=== PATIENT | male | born 1950 | race Caucasian/White ===

== ENCOUNTER 2016-10-22 23:34 | Emergency (ER) | payer BC ==
[2016-10-22 20:56] LABS: WBC (NOT ORDERED) (RFLEX) 0 (0-5)
[2016-10-22 21:00] LABS: BASOPHILS 0.5 %; BASOPHILS ABSOLUTE 0.03 10/3/uL (0.0-0.16); EOSINOPHILS ABSOLUTE 0.25 10/3/uL (0.0-0.53); ER CBC TAT 0 Hrs 00 Mins; HEMATOCRIT 45.7 % (40.0-51.0); HEMOGLOBIN 16.1 g/dL (13.6-17.8); LYMPHOCYTES 27.4 %; LYMPHOCYTES ABSOLUTE 1.72 10/3/uL (0.67-4.30); MANUAL DIFF NO %; MEAN CORPUS HGB CONC 35.2 g/dL (32.0-36.0); MEAN CORPUSCULAR HEMOGLOB 30.9 pg (26.0-34.0); MEAN CORPUSCULAR VOLUME 87.7 fL (80-100); MEAN PLATELET VOLUME 9.6 fL (9.2-13.0); MONOCYTES 8.8 %; MONOCYTES ABSOLUTE 0.55 10/3/uL (0.21-1.20); NEUTROPHILS 59.3 %; NEUTROPHILS ABSOLUTE 3.72 10/3/uL (2.02-8.40); PLATELET COUNT 256 10/3/uL (150-400); RBC DISTRIBUTION WIDTH 13.5 % (12.0-16.0); RED CELL COUNT 5.21 10/6/uL (4.7-6.1); WHITE BLOOD CELLS 6.3 10/3/uL (4.5-10.5)
[2016-10-22 21:07] LABS: ASCORBIC ACID (UR NOT ORDER) NEG (NEG); BILIRUBIN, URINE NEGATIVE (NEG); ER URINALYSIS TAT 0 Hrs 14 Mins; KETONE, URINE TRACE MG/DL (NEG); LEUKOCYTE ESTERASE(NOT OR NEG (NEG); NITRITE (URINE) NEG (NEG)
[2016-10-22 21:20] LABS: A/G RATIO 1.2 (0.7-1.9); ALBUMIN 4.3 G/DL (3.5-5.0); BUN (BLOOD UREA NITROGEN) 11 MG/DL (6-23); CALCIUM, SERUM 9.8 MG/DL (8.5-10.4); CHLORIDE, SERUM 106 MMOL/L (96-112); CREATININE 0.92 MG/DL (0.70-1.30); GFR AFRICAN AMERICAN 99 ML/MIN (>=60); GFR NON AFRICAN AMERICAN 86 ML/MIN (>=60); GLOBULIN 3.5 G/DL (2.5-4.1); GLUCOSE, SERUM 87 MG/DL (60-99); POTASSIUM, SERUM 3.6 MMOL/L (3.5-5.3); SGOT(AST) 24 U/L (5-40); SGPT(ALT) 39 U/L (5-65); SODIUM, SERUM 140 MMOL/L (135-148); TOTAL PROTEIN 7.8 G/DL (6.0-8.5)
[2016-10-22 21:22] LABS: ALKALINE PHOSPHATASE 64 U/L (45-117); CO2 (CARBON DIOXIDE) 28 MMOL/L (24-34); TOTAL BILIRUBIN 2.5 MG/DL (0-1.2)
[~2016-10-22 23:34] MED LIST: AMINO ACIDS PO
[2017-03-12] MEDS ORDERED: *DENIES (13:21)
== END 2016-10-22 23:59 | disposition home or self-care (01) ==
LOC: ER 23:34
PROVIDERS: Emergency Medicine
PROC: 0T9B70Z Drainage of Bladder with Drainage Device, Via Natural or Artificial Opening (ICD-10-PCS; principal; 2016-10-22)
DX: R10.9 Unspecified abdominal pain (principal); F03.90 Unspecified dementia, unspecified severity, without behavioral disturbance, psychotic disturbance, mood disturbance, and anxiety; Z86.718 Personal history of other venous thrombosis and embolism; Z85.828 Personal history of other malignant neoplasm of skin; Z88.0 Allergy status to penicillin; Z88.2 Allergy status to sulfonamides; Z88.8 Allergy status to other drugs, medicaments and biological substances
CPT/HCPCS: 80053; 81001; 85025; 96374; 99284; J2405

== ENCOUNTER 2016-11-03 13:11 | Emergency (ER) | payer BC ==
[2016-11-03 12:26] LABS: ASCORBIC ACID (UR NOT ORDER) NEG (NEG); BILIRUBIN, URINE NEGATIVE (NEG); ER URINALYSIS TAT 0 Hrs 18 Mins; KETONE, URINE NEGATIVE (NEG); LEUKOCYTE ESTERASE(NOT OR MOD (NEG); NITRITE (URINE) NEG (NEG); WBC (NOT ORDERED) (RFLEX) 35 (0-5)
[2017-03-12] MEDS ORDERED: *DENIES (13:21)
== END 2016-11-03 13:35 | disposition home or self-care (01) ==
LOC: ER 13:11
PROVIDERS: Emergency Medicine
DX: N39.0 Urinary tract infection, site not specified (principal); R33.9 Retention of urine, unspecified; N48.89 Other specified disorders of penis; Z88.0 Allergy status to penicillin; Z88.2 Allergy status to sulfonamides; Z88.8 Allergy status to other drugs, medicaments and biological substances; Z79.899 Other long term (current) drug therapy
CPT/HCPCS: 81001; 87077; 87086; 87186; 99283

== ENCOUNTER 2016-11-09 01:26 | Inpatient (IN) | payer BC ==
--- NOTE | ~2016-11-09 | IDS ---
Interim Discharge Summary [facility] [address] [place]. [address] NAME: JAMIA TRACY : 48 STATUS : ADM IN [facility]#: [id number] AGE: 66 ADM/REG DATE : 11/09/16 MR#: [id number] REPORT SERV DATE: 11/12/16 DICTATED BY: EROS CLARK DATE: 11/12/16 REPORT STATUS : Draft TRANSCRIBED BY: MODL DATE: 11/12/16 ADMISSION DATE: 11/09/2016 DISCHARGE DATE: WORKING DIAGNOSES: 1. Garcia catheter associated pseudomonal and Klebsiella urinary tract infection. 2. Urinary tract infection above is complicated by epididymitis and possible orchitis with formation of complex hydrocele. Improving with IV aztreonam. 3. Urinary retention with benign prostatic hyperplasia, with plans for surgery in the near future. 4. Multiple drug allergies. 5. Chronic headaches. 6. Elevated liver enzymes, mild with no significant imaging evaluations. CONSULTANTS: 1. Dr. Angel of Infectious Disease. 2. Dr. Mccracken of Urology. PROCEDURES: None. HOSPITAL COURSE: This is a 66-year-old gentleman who was admitted to the hospital with a Garcia catheter associated urinary tract infection. For details, please refer to the excellent H and P by Dr. Drew Montgomery. In summary, the patient was admitted and was started aztreonam as the patient has multiple drug allergies. The patient was seen by Infectious Disease as well as Urology and currently the plan is for the patient to continue IV aztreonam as prior to getting a re-evaluation for prostatic surgery. Of note, the patient's repeat urine cultures have been negative and tentatively the plan is to continue IV aztreonam to complete a two-week course. The aztreonam was chosen as the patient has multiple drug allergies and intolerance to many antibiotics. Case Management is to set up outpatient antibiotic therapy, and hopefully, the patient will be able to be discharged to home soon. MIRNA/ANDRIY Eros Clark MD / [id number] CC: MD Nura Smith M.D.
--- NOTE | ~2016-11-09 | CN ---
Consultation Report [facility] [address] [place]. [address] NAME: JAMIA TRACY : 48 STATUS : ADM Damian PAT#: [id number] AGE: 66 ADM/REG DATE : 11/09/16 MR#: [id number] REPORT SERV DATE: 11/10/16 DICTATED BY: RABIA ANGEL DATE: 11/09/16 REPORT STATUS : Draft TRANSCRIBED BY: MODL DATE: 11/09/16 INFECTIOUS DISEASE CONSULTATION DATE OF CONSULTATION: 11/09/2016 REASON FOR CONSULTATION: UTI and epididymitis. HISTORY OF PRESENT ILLNESS: This is a 66-year-old man with a past medical history notable for BPH with urinary retention. This problem really started in early October when he had eye surgery and developed postoperative ileus and urinary retention and had to have a Garcia catheter placed. He has been followed by Dr. Chau and has continued to fail voiding trials, requiring replacement of Garcia catheters. This is outlined in more detail on Dr. Montgomery's history and physical with regard to his postvoid residuals, etc. Decision was made to pursue a TURP. A urine culture though was obtained in the emergency room on 11/03 and grew greater than 100,000 colonies of Klebsiella and Pseudomonas, both of which were sensitive to Cipro. His urinalysis associated with that did show moderate leukocyte esterase and 35 white blood cells. The patient was started on Cipro by Dr. Chau and took his first dose on the evening of 11/06. Prior to this, he relates fevers and chills for about a week and a half. After starting the Cipro, the patient fairly quickly developed a bad headache, "cranial pressure," and then he developed symptoms of "tightness in all my tendons," including in his Achilles tendon. He also complains of low back pain. Because of these symptoms and his previous history of antibiotic intolerances and allergies, he stopped the Cipro after the second dose on 11/07. He presented to the emergency department at [facility] around midnight last night complaining of this cranial pressure, fevers, and low back pain. He also had developed this week some increasing pain, swelling, and redness of his left scrotum with lesser symptoms on the right. On admission, he was found to have changes consistent with epididymitis on physical exam along with a white blood cell count of 13,100. He was admitted, and a repeat urine culture from his Garcia catheter was obtained along with urinalysis and blood cultures. The patient was ordered aztreonam, but refused to take it until I talked to him. He did undergo ultrasound of his testicles today, which was interpreted as showing findings most suggestive of left-sided epididymo-orchitis along with an associated complex hydrocele/pyocele measuring at least 3.5 x 1.5 cm along with a small right simple hydrocele. The patient states he has had a number of allergies and intolerances to antibiotics through the years. However, he tells me that he has a poor memory recalling many of the specifics about these reactions. He does think that years ago following Mohs surgery, he developed a staph infection and had a reaction to some sort of penicillin that included a rash. He has not had anaphylaxis. He has also had problems with the sulfa and then the recent problems with the Cipro. He has become very reluctant to take any antibiotics. PAST MEDICAL HISTORY: In addition to the above is notable for right inguinal hernia repair, appendectomy, retinal detachment surgery, and some trauma requiring multiple surgeries. I did not have time to discuss his GI history with him with regard to his elevated liver Consultation Report [address] [place]. [address] NAME: JAMIA TRACY : 48 STATUS : ADM Damian PAT#: [id number] AGE: 66 ADM/REG DATE : 11/09/16 MR#: [id number] REPORT SERV DATE: 11/10/16 DICTATED BY: RABIA ANGEL DATE: 11/09/16 REPORT STATUS : Draft TRANSCRIBED BY: MODRoger DATE: 11/09/16 function tests, but he has been followed by Dr. Gregory (the patient focuses poorly on the questions that I ask him and we spent a very long period of time talking about the antibiotic allergy history issue). The patient also has a history of eczema and I think possibly seborrhea of the face and cervical spine disease. ALLERGIES: MENTIONED ABOVE. OUTPATIENT MEDICATIONS: As mentioned above. A complete list is not on the chart. SOCIAL HISTORY: He is , his is here in the room with him. Nonsmoker and nondrinker. Retired dentist. FAMILY HISTORY: Notable for mother with congestive heart failure. REVIEW OF SYSTEMS: The patient does have some episodic skin problems, which he in part relates to recent eye drops. Prior to taking the Cipro, he did have a bit of a rash on his chest and face. He has the headache as mentioned and other complaints as noted above. The rest of the 10-point review of systems is negative. PHYSICAL EXAMINATION: VITAL SIGNS: The patient has been afebrile since admission. Blood pressure is 114/79; pulse is 81, it was 95 in the ER on 11/03; respiratory rate 16. He weighs 73 kg. GENERAL: He is alert, in no acute distress. HEAD AND NECK: Show an oral cavity without thrush, although he does have some sort of patchy erythema of his buccal mucosa and of his palate. Neck is supple. LUNGS: Clear to auscultation. CARDIAC: Regular rate and rhythm without murmur, gallop, or rub. ABDOMEN: Soft and nontender. EXTREMITIES: Without edema. : Shows fairly marked induration and mild soft tissue edema and erythema of the left scrotum with much moderate changes on the right side with mild associated tenderness to palpation. The patient has a Garcia catheter. SKIN: Shows patchy erythema of his mid anterior chest and scattered erythematous macules and papules on his back. He has changes consistent with seborrheic dermatitis of his face. LABORATORY STUDIES: White blood cell count as mentioned, repeat late this morning 13.6; hemoglobin 14.6; platelets 442. Creatinine 0.68. Procalcitonin 0.50. Albumin 2.9, alkaline phosphatase 327, ALT 119, AST 91, bilirubin 2.4. We do not have old liver function tests for comparison. Urinalysis on admission last night showed small leukocyte esterase, positive nitrite, 29 white blood cells. Abdominal ultrasound reveals mild cholelithiasis and gallbladder sludge without evidence of cholecystitis or biliary obstruction. CT scan of the brain without IV contrast shows mild generalized atrophy without acute pathology. IMPRESSION: The patient appears to have catheter-associated urinary tract infection with Consultation Report [address] [address] NAME: JAMIA TRACY : 48 STATUS : ADM Damian PAT#: [id number] AGE: 66 ADM/REG DATE : 11/09/16 MR#: [id number] REPORT SERV DATE: 11/10/16 DICTATED BY: RABIA ANGEL DATE: 11/09/16 REPORT STATUS : Draft TRANSCRIBED BY: ANDRIY DATE: 11/09/16 Klebsiella and Pseudomonas, now complicated by probable epididymitis. He also has a history of drug hypersensitivity/drug intolerances, which he became very reluctant to take antibiotics. Most recently, he has had symptoms while taking his first dose of Cipro, which made him stop the drug. There are no other oral antibiotic options to treat the gram- negative rods from 11/11 urine culture. PLAN: 1. We will begin aztreonam. The patient and I had a long discussion about the fact that there is no contraindication to giving aztreonam in patients with a history of beta- lactam allergy. I do believe it is the best drug to use at this time for the present infection. 2. Await repeat urine culture, although it may be affected by the three doses of Cipro he took earlier this week. 3. I discussed with the shoe parts caser as the patient may need home IV antibiotics. 4. We will forward a copy of this consult to Dr. Chau. He had been tentatively scheduled for a TURP today. Obviously, we would like to have this infection under better control prior to that surgery since he was unable to take the Cipro. I tentatively plan on two weeks of aztreonam, and perhaps the TURP could be scheduled toward the end of that course of therapy. ANTOINE/ANDRIY Rabia Angel M.D. / [id number] CC: MD Nura Smith M.D.
--- NOTE | ~2016-11-09 | HP ---
History And Physical [place] [id number] [facility] [place]. [address] NAME: JAMIA TRACY : 48 STATUS : ADM Damian PAT#: [id number] AGE: 66 ADM/REG DATE : 11/09/16 MR#: [id number] REPORT SERV DATE: 11/09/16 DICTATED BY: DYLAN LEGGETT DATE: 11/09/16 REPORT STATUS : Draft TRANSCRIBED BY: MODL DATE: 11/09/16 DATE OF ADMISSION: 11/09/2016 CHIEF COMPLAINT: 66-year-old male, presenting with urinary retention and now painful swelling and hardness of his left testicle and evidence of urinary tract infection. HISTORY OF PRESENT ILLNESS: The patient's history was obtained through careful interview with the patient, , coupled with review of [facility] medical records. The patient states that his problems really began around 10/17/2016 when he presented at the [facility] for eye surgery. He had difficulty recovering from anesthesia and had to stay an extra night in the hospital because of mild ileus and urinary retention. He was unable to urinate for about 12 hours after the procedure, had a postvoid residual of greater than a 1000 and had to have a Garcia catheter placed. Eventually, he had to go home with a Garcia catheter because of inability to urinate. Within the week, he was able to follow up with the urologist and in total, the patient has had six separate catheters placed because of continued voiding trials, but without any success. Therefore, the patient has actually been evaluated by Dr. Chau, urologist for a TURP. Most recently, the patient's postvoid residual after an attempt at removing his Garcia catheter was 1400 mL of urine. A urine culture was done on 11/03/2016 and showed greater than 100,000 colonies of Pseudomonas and Klebsiella. Recently, the patient has also developed increasing pain, swelling, and redness in his scrotum and testicles affecting his left side more than the right. He states "it is infected" for about three days now. About six or seven days ago, he was placed on ciprofloxacin for treatment of urinary tract infection, but this medication seemed to cause some kind of a rash over his chest and so he has discontinued it for several days. Over the last 10 days on and off, he has had fevers, chills, and occasional rigors. He has had nausea, but no vomiting. He has developed a headache just in the last 24 hours, a pressure like quality, going behind his eyes, a 10/10 severity. His left eye in particular. The patient could not sleep for several nights because of pain. REVIEW OF SYSTEMS: Otherwise, a 14-point review of systems was obtained and was negative. PAST MEDICAL HISTORY: History And Physical [address] [address] NAME: JAMIA TRACY : 48 STATUS : ADM Damian PAT#: [id number] AGE: 66 ADM/REG DATE : 11/09/16 MR#: [id number] REPORT SERV DATE: 11/09/16 DICTATED BY: DYLAN LEGGETT DATE: 11/09/16 REPORT STATUS : Draft TRANSCRIBED BY: ANDRIY DATE: 11/09/16 1. Benign prostatic hypertrophy with urinary retention, being evaluated for a TURP by Dr. Chau. 2. DVT. 3. Urinary tract infection with Pseudomonas and Klebsiella. 4. Gastrointestinal issues seen by Dr. Gregory. 5. Cervical spine disease. 6. Eczema. PAST SURGICAL HISTORY: 1. Right inguinal hernia repair. 2. Appendectomy. 3. Retinal detachment surgery, 10/17/2016. 4. In 1967, he had a "building fallen me" and spent about three years in the hospital with multiple surgeries. ALLERGIES: PENICILLIN, SULFA, CORTISONE, CIPRO. SOCIAL HISTORY: No tobacco abuse. No alcohol abuse. He is . Retired dentist. FAMILY HISTORY: Mother with congestive heart failure. CURRENT MEDICATIONS: Unknown at this time. We have requested a medication list from a pharmacist. PHYSICAL EXAMINATION: VITAL SIGNS: Temperature 98.0, pulse 72, blood pressure 119/69, respiratory rate 18, and O2 saturation 98% on room air. GENERAL: Ill-appearing male, in evidence of minimal distress because of testicular pain mostly. HEENT: Pupils equal, round, and reactive to light. No conjunctival pallor. No scleral icterus. Nares are patent. Oropharynx is clear of obstruction. Dry mucous membranes. NECK: Trachea midline. No thyromegaly. LYMPH: No cervical lymphadenopathy. No supraclavicular lymphadenopathy. No inguinal lymphadenopathy. RESPIRATORY: Clear to auscultation at bases. No wheezes, rales, or rhonchi. Normal respiratory effort. CARDIOVASCULAR: Regular rate and rhythm. No murmurs, rubs, or gallops. No extremity edema is appreciated. ABDOMEN: Minimal suprapubic abdominal discomfort. No guarding. No rebound. No flank tenderness. No hepatosplenomegaly. DERMATOLOGICAL: Warm and dry extremities. No pallor. No cyanosis. Testicular exam shows swollen edematous left testicle more than right with a hardening, uncomfortable and painful, mass-like effect in his left testicle, but without any fluctuance. There is surrounding erythema, heat, swelling, tenderness, but no ulceration. PSYCHIATRIC: Normal affect. Good mood. Alert and oriented x3. LABORATORY DATA: White blood count 13.1, hemoglobin 14, hematocrit 41, platelets 466. History And Physical [address] [address] NAME: JAMIA TRACY : 48 STATUS : ADM Damian PAT#: [id number] AGE: 66 ADM/REG DATE : 11/09/16 MR#: [id number] REPORT SERV DATE: 11/09/16 DICTATED BY: DYLAN LEGGETT DATE: 11/09/16 REPORT STATUS : Draft TRANSCRIBED BY: ANDRIY DATE: 11/09/16 Sodium 138, potassium 4.8, chloride 107, bicarb 23, BUN 17, creatinine 0.79, glucose 99. CPK 97. Troponin negative. Lactic acid 1.5. AST 132, ALT 130, alkaline phosphatase 349. Urinalysis shows positive leukocyte esterase, positive nitrites, 29 white blood cells. STUDIES: 1. EKG by my own evaluation shows sinus rhythm, no major abnormalities. 2. CT scan of the brain without contrast shows no acute intracranial process. ASSESSMENT AND PLAN: 1. Garcia catheter-associated urinary tract infection. This is a presumptive diagnosis with positive cultures for Pseudomonas and Klebsiella about six days ago. Consult Infectious Disease for antibiotic guidance. For now, we will hold antibiotics mostly because of the patient's preference to hold antibiotics at this time until Infectious Disease can guide better. We will consult Urology, Dr. Chau. 2. Urinary retention. Obtain Urology consult. 3. Elevated liver enzymes. Check ultrasound of the abdomen. Follow closely. 4. Headache. Negative CT scan of the brain. 5. Testicular swelling. Check an ultrasound of the testicles. KPL/MODL Dylan Leggett M.D. / [id number] CC: MD Nura Smith M.D.
--- NOTE | ~2016-11-09 | DS ---
Discharge Summary [facility] [address] [place]. [address] NAME: JAMIA TRACY : 48 STATUS : DIS IN PAT#: [id number] AGE: 66 ADM/REG DATE : 11/09/16 MR#: [id number] REPORT SERV DATE: 11/20/16 DICTATED BY: RIGOBERTO LOBO DATE: 11/19/16 REPORT STATUS : Draft TRANSCRIBED BY: MODL DATE: 11/19/16 ADMISSION DATE: 11/09/2016 DISCHARGE DATE: 11/19/2016 DISCHARGE DIAGNOSES: 1. Catheter associated urinary tract infection with Pseudomonas and Klebsiella. 2. Acute epididymo-orchitis left. 3. Urinary retention requiring Garcia catheterization prior to admission. 4. Abnormal bladder on CT imaging with eccentric irregular margins, Urology followup scheduled. 5. Clostridium difficile colitis. 6. Chronic headaches. 7. Chronic asymptomatic hypotension and bradycardia with abnormal left ventriculogram on CT imaging with normal echocardiogram showing left ventricular systolic function 56%, normal left ventricular diastolic function, right ventricular systolic function, and no significant valvular dysfunction. 8. History of retinal detachment. 9. History of multiple trauma with prolonged hospitalization in the 1960s. 10.Transient hepatitis. 11.Asymptomatic cholelithiasis. 12.Acute anemia associated with present illness. 13.Acute thrombocytosis associated with present illness. OPERATION/PROCEDURES: None. PRESENT ILLNESS: This is a 66-year-old white male who was triaged in the emergency room on 11/09/2016 at 0039 hours with complaints of severe cranial pressure, fever, and lumbar spasms. Admission vital signs; blood pressure 119/69, temp 98, pulse 72, respirations 18, O2 sat 98%. After evaluation in the emergency room, his diagnoses were: 1. Urinary tract infection. 2. Leukocytosis. 3. Fever. 4. Headache. 5. Weakness. He was referred to the Hospitalist Service for admission. He was seen by Dr. Drew Montgomery and admitted as described on admission history and physical examination. Additional history included eye surgery in early October. He had postprocedure ileus and urinary retention. A Garcia catheter was placed. He had outpatient Urology followup and had six unsuccessful voiding trials. He was seeing Dr. Chau at [facility] during that time and a TUR was scheduled. A urine culture was done on 11/03/2016, which showed Pseudomonas and Klebsiella. He was Discharge Summary [facility] [id number] [place]. [address] NAME: JAMIA TRACY : 49 STATUS : DIS IN PAT#: [id number] AGE: 66 ADM/REG DATE : 11/09/16 MR#: [id number] REPORT SERV DATE: 11/20/16 DICTATED BY: RIGOBERTO LOBO DATE: 11/19/16 REPORT STATUS : Draft TRANSCRIBED BY: MODRoger DATE: 11/19/16 started on Cipro. This seemed to cause some type of rash, so he discontinued it. For several days, he developed fever, chills, and occasional rigors. He developed an unrelenting headache. He came here for further evaluation. ADDITIONAL HISTORY: Per Dr. Montgomery. PHYSICAL EXAMINATION: Per Dr. Montgomery. ADMISSION LABORATORY DATA: Per Dr. Montgomery. HOSPITAL COURSE: He was admitted with: 1. Garcia catheter associated urinary tract infection with Pseudomonas and Klebsiella. 2. Urinary retention. 3. Elevated liver enzymes. 4. Headache. 5. Testicular swelling. He was admitted to [address] [place] [address]. Consultations were obtained with Infectious Disease and with Urology. He was seen by Dr. Angel and Dr. Mccracken. His hospitalist care was by Dr. Barajas on 11/10/2016, 11/11/2016, and 11/12/2016 and the undersigned from 11/13/2016 through discharge. Repeat culture data included blood cultures on 11/09/2016 which were no growth and a urine culture on 11/09/2016 which was no growth. Additional pertinent imaging included a testicular ultrasound on 11/09/2016 that showed findings most suggestive of left-sided epididymo-orchitis. There was an associated complex hydrocele/pyocele. There was a small right simple hydrocele, otherwise normal appearance to right hemiscrotum and right testicle. Dr. Angel recommended aztreonam given the patient's previous reported drug reactions to several antimicrobials. It was felt this should be continued post discharge through 11/23/2016 to complete a two-week course of therapy. Dr. Mccracken concurred with the above-mentioned diagnosis and therapy and recommended prostate surgery in the near future as his clinical condition and infection control improved. There was a slow but consistent improvement in his epididymo-orchitis. He tolerated his Garcia catheter well and had clear urine on aztreonam. Current plan was for discharge on 11/14/2016, but he developed some hyperdefecation and some well-localized right abdominal pain. A repeat laboratory evaluation done on that day included a CBC, which showed a white count of 16,000 having been 8.8 on 11/13/2016. A procalcitonin was 0.07 and a C-reactive protein 10.3. Stools were formed and stool for C. Discharge Summary [address] [address] NAME: JAMIA TRACY : 49 STATUS : DIS IN PAT#: [id number] AGE: 66 ADM/REG DATE : 11/09/16 MR#: [id number] REPORT SERV DATE: 11/20/16 DICTATED BY: RIGOBERTO LOBO DATE: 11/19/16 REPORT STATUS : Draft TRANSCRIBED BY: ANDRIY DATE: 11/19/16 diff could not be obtained. His discharge was held. On 11/15/2016, he had had five stools. He had persistent well- localized right lower quadrant pain associated with some anorexia, nausea, but he wanted to go home. Initially, it was felt that he could be discharged, but then he developed additional loose stools. A stat CT scan of the abdomen was performed. It showed a diffuse ascending and transverse colitis. Additional findings included an irregular bladder and left ventricular contour as described above. It was suspected that he had C. diff colitis. A stool was obtained for C. diff and was positive. He was started on p.o. vancomycin. Additional stool studies included leukocytes that were present greater than 100 per high-power field. A stool culture that did not grow any pathogenic bacteria and a stool for Shiga toxin that was negative. He tolerated p.o. vancomycin well. His diarrhea and abdominal pain resolved. His anorexia resolved and by 11/19/2016, it was felt that he had achieved a level of improvement and stability where in fact he could be safely discharged home to complete outpatient antimicrobial therapy with home health care. Additional issues during his hospitalization included an acute hepatitis with his present illness. Bilirubin was 2.4 on 11/09/2016, but 0.9 on 11/16/2016. Alkaline phosphatase 349 on 11/09/2016, but 189 on 11/16/2016; ALT 130 on 11/09/2016, but 62 on 11/16/2016; AST 132 on 11/09/2016, but 24 on 11/16/2016. An evaluation included an iron of 52, TIBC of 287, and ferritin of 704. Serum protein electrophoresis demonstrating an [id number] elevation consistent with an acute phase reactant. Hepatitis profile for A, B, and C was normal. It was felt his acute hepatitis was related to at least in part to his acute illness, if not medications he had previously had prior to his hospitalization. He developed mild acute anemia while hospitalized with admission hemoglobin of 14.3, discharge hemoglobin 12. He developed an acute thrombocytosis with his present illness with admission platelet count of 466, peak platelet count 733 on 11/16/2016, and 670,000 on 11/18/2016. Because of his chronic hypotension and bradycardia and abnormal LV on CT imaging, an echocardiogram was done today prior to discharge which was normal as described. He is being discharged home today. He will follow up with Dr. Mccracken in one week at which time surgery will be scheduled. He plans to follow up with a new primary care provider, Dr. Stewart Garcia, fax [phone]. He was asked to maintain a liquid intake of approximately 3000 mL per day. His diet will be his home diet without restrictions given. His activity will be as tolerated. He will maintain his Garcia catheter at this time. Discharge Summary [address] [address] NAME: JAMIA TRACY : 48 STATUS : DIS IN PAT#: [id number] AGE: 66 ADM/REG DATE : 11/09/16 MR#: [id number] REPORT SERV DATE: 11/20/16 DICTATED BY: RIGOBERTO LOBO DATE: 11/19/16 REPORT STATUS : Draft TRANSCRIBED BY: ANDRIY DATE: 11/19/16 DISCHARGE MEDICATIONS: Azactam 2 g IV every eight hours through 11/23/2016, Florastor 250 mg twice daily, vancomycin 125 mg every six hours for the next 14 days, Zofran 4 mg every four hours as needed for nausea, Dilaudid 2 mg every six hours as needed for pain. Discharge time greater than 30 minutes. DICTATED BY: Rigoberto Lobo M.D. DD/ANDRIY Rigoberto Lobo M.D. / [id number] CC: Ellie Orona M.D. Young S Chang, MD Hal Hill, M.D. J. Patrick Dilworth, M.D.
--- NOTE | ~2016-11-09 | CN ---
Consultation Report [facility] [address] [place]. [address] NAME: JAMIA CHRISTIE : 48 STATUS : ADM IN PAT#: [id number] AGE: 66 ADM/REG DATE : 11/09/16 MR#: [id number] REPORT SERV DATE: 11/12/16 DICTATED BY: River NEAL DATE: 11/11/16 REPORT STATUS : Draft TRANSCRIBED BY: MODL DATE: 11/11/16 CONSULTATION NOTE DATE OF CONSULTATION: 11/11/2016 CHIEF COMPLAINT: Urinary retention with left epididymitis. HISTORY OF PRESENT ILLNESS: Mr. Christie is a 66-year-old white male, who presented to the emergency room on 11/09/2016, with painful swelling of his left testicle and evidence of UTI. He was in urinary retention with indwelling Garcia catheter. His history began about 10/17/2016, when he had an emergency eye surgery at [facility]. He had a long postoperative recovery and was in and out catheterization several times for large volumes. Ultimately, he had a catheter placed. He had previously seen Dr. Albertina Chau for Peyronie's disease, and saw him in consultation for this, and it was planned to perform what sounds like a laser photo vaporization of the prostate on Saturday11/07/2016. He has apparently been intolerant not only oral antibiotics, but of alpha blockers. I do not have any information on the size of his prostate or any other data that has been collected in Dr. Chau's office. His most recent catheter was placed at [facility]. Urine culture was done on 11/11/2016, showed greater 100,000 colonies of Pseudomonas and Klebsiella. Over several days, he has noticed increased pain, swelling, and redness in his scrotum and testicles, and this had occurred after he had stopped the Cipro due to intolerance. He has also complained of headaches. PAST MEDICAL HISTORY: 1. Urinary retention. 2. Previous DVT. 3. Urinary tract infection. 4. Unknown GI issues. 5. Eczema. 6. Cervical spine disease. PAST SURGICAL HISTORY: 1. Inguinal hernia repair. 2. Emergency retinal surgery on 10/17/2016. 3. Appendectomy. HOME MEDICATIONS: Unknown. ALLERGIES OR INTOLERANCES: Penicillin, sulfa, prednisone, cortisone, ciprofloxacin. SOCIAL HISTORY: The patient denies use of alcohol or tobacco. He is and he is retired. FAMILY HISTORY: Negative for urologic disease. Consultation Report [facility] [id number] [place]. [address] NAME: JAMIA CHRISTIE : 48 STATUS : ADM IN PAT#: [id number] AGE: 66 ADM/REG DATE : 11/09/16 MR#: [id number] REPORT SERV DATE: 11/12/16 DICTATED BY: River NEAL DATE: 11/11/16 REPORT STATUS : Draft TRANSCRIBED BY: ANDRIY DATE: 11/11/16 REVIEW OF SYSTEMS: Full 12-point review of systems was performed and negative except as noted above. PHYSICAL EXAMINATION: GENERAL: 66-year-old white male, alert and oriented x3. VITAL SIGNS: Afebrile, currently with normal vital signs. HEENT: Normocephalic and atraumatic. LUNGS: No respiratory distress. HEART: Regular rate and rhythm. ABDOMEN: Flat, nontender, and nondistended. No suprapubic distention. No CVA tenderness. GENITOURINARY: Indwelling Garcia catheter with a normal circumcised penis, draining clear urine. He has a normal right testicle. The left testicle and epididymis were swollen and inseparable from each other. There was mild tenderness by his history, it is much better than it was when he arrived. PERTINENT LABORATORY: Creatinine 0.79 on admission. Urinalysis inflammatory. White count 13,100. His white count has decreased to 10.8. IMPRESSION: 1. Urinary retention. 2. Catheter associated urinary tract infection. 3. Left epididymitis. 4. Multiple antibiotic intolerances. PLAN: 1. We will continue present therapy. I recommend scrotal elevation. 2. We will change his Garcia at some point, but he is on sensitivity-directed antibiotics and to proceed with his prostate surgery as per his desire after that. BATSHEVA/ANDRIY River Neal M.D. / [id number] CC: MD Nura Smith M.D. Amar Singh, MD
[2016-11-09 02:55] LABS: BASOPHILS 0.8 %; EOSINOPHILS ABSOLUTE 0.26 10/3/uL (0.0-0.53); HEMOGLOBIN 14.3 g/dL (13.6-17.8); IMMATURE GRANULOCYTES 4.7 %; LYMPHOCYTES 13.8 %; LYMPHOCYTES ABSOLUTE 1.81 10/3/uL (0.67-4.30); MEAN CORPUS HGB CONC 34.9 g/dL (32.0-36.0); MEAN CORPUSCULAR HEMOGLOB 30.7 pg (26.0-34.0); MEAN PLATELET VOLUME 9.9 fL (9.2-13.0); MONOCYTES ABSOLUTE 0.79 10/3/uL (0.21-1.20); NEUTROPHILS 72.7 %; RBC DISTRIBUTION WIDTH 14.6 % (12.0-16.0); RED CELL COUNT 4.66 10/6/uL (4.7-6.1)
[2016-11-09 02:59] LABS: ER CBC TAT 0 Hrs 01 Mins; IMMATURE GRANULOCYTES ABSOLUTE 0.61 10/3/uL (0.0-0.11); MANUAL DIFF NO %; PLATELET COUNT 466 10/3/uL (150-400); WHITE BLOOD CELLS 13.1 10/3/uL (4.5-10.5)
[2016-11-09 03:06] LABS: INTERNATIONAL NORMAL RATI 1.1 UNITS (-); PARTIAL THROMBO TIME 33.8 SEC (22.5-37.2)
[2016-11-09 03:14] LABS: CHEST PAIN PROFILE TAT 0 Hrs 26 Mins; CHLORIDE, SERUM 107 MMOL/L (96-112); CREATININE 0.79 MG/DL (0.70-1.30); GFR AFRICAN AMERICAN 108 ML/MIN (>=60); GFR NON AFRICAN AMERICAN 93 ML/MIN (>=60); GLUCOSE, SERUM 99 MG/DL (60-99); SGPT(ALT) 130 U/L (5-65); SODIUM, SERUM 138 MMOL/L (135-148); TOTAL PROTEIN 7.5 G/DL (6.0-8.5); TROPONIN I <0.02 NG/ML (<0.05)
[2016-11-09 03:16] LABS: ALBUMIN 2.8 G/DL (3.5-5.0); ALKALINE PHOSPHATASE 349 U/L (45-117); BUN (BLOOD UREA NITROGEN) 17 MG/DL (6-23); CALCIUM, SERUM 8.8 MG/DL (8.5-10.4); CO2 (CARBON DIOXIDE) 23 MMOL/L (24-34); CPK 97 U/L (0-200); DIRECT BILIRUBIN < 0.1 MG/DL (0.0-0.4); INDIRECT BILIRUBIN(NOT ORDER) 0.9 MG/DL (0.1-0.9); POTASSIUM, SERUM 4.8 MMOL/L (3.5-5.3); SGOT(AST) 132 U/L (5-40)
[2016-11-09 03:18] LABS: BAND NEUTROPHILS 6 %; EOSINOPHILS 5 %; EOSINOPHILS ABSOLUTE (CALC) 0.66 10/3/uL (0.0-0.53); ER DIFF TAT 0 Hrs 20 Mins; IMMATURE GRANS ABSOLUTE (CALC) 0.13 10/3/uL (0.0-0.11); LYMPHOCYTES 11 %; LYMPHOCYTES ABSOLUTE (CALC) 1.44 10/3/uL (0.67-4.30); METAMYELOCYTES 1 %; MONOCYTES 5 %; MONOCYTES ABSOLUTE (CALC) 0.66 10/3/uL (0.21-1.20); NEUTROPHILS ABSOLUTE (CALC) 10.22 10/3/uL (2.02-8.40); NUCLEATED RED BLOOD CELLS 1 /100WBC (0); SEGMENTED NEUTROPHIL (0) 72 %; TOTAL NUCLEATED CELLS 100
[2016-11-09 03:22] LABS: PLATELET ESTIMATE SLT INC (ADEQUATE); TOXIC GRANULATION SLT; VACUOLATED NEUTROPHILES FEW
[2016-11-09 03:23] LABS: RBC MORPHOLOGY NORM (NORMAL)
[2016-11-09 03:33] LABS: ASCORBIC ACID (UR NOT ORDER) NEG (NEG); BILIRUBIN, URINE NEGATIVE (NEG); ER URINALYSIS TAT 0 Hrs 11 Mins; KETONE, URINE NEGATIVE (NEG); LEUKOCYTE ESTERASE(NOT OR SMALL (NEG); NITRITE (URINE) POS (NEG); WBC (NOT ORDERED) (RFLEX) 29 (0-5)
[2016-11-09 11:53] LABS: HEMATOCRIT 42.1 % (40.0-51.0); HEMOGLOBIN 14.6 g/dL (13.6-17.8); MANUAL DIFF YES %; MEAN CORPUS HGB CONC 34.7 g/dL (32.0-36.0); MEAN CORPUSCULAR HEMOGLOB 30.4 pg (26.0-34.0); MEAN CORPUSCULAR VOLUME 87.7 fL (80-100); MEAN PLATELET VOLUME 9.5 fL (9.2-13.0); PLATELET COUNT 442 10/3/uL (150-400); RBC DISTRIBUTION WIDTH 14.8 % (12.0-16.0); WHITE BLOOD CELLS 13.6 10/3/uL (4.5-10.5)
[2016-11-09 12:03] LABS: INTERNATIONAL NORMAL RATI 1.1 UNITS (-); PARTIAL THROMBO TIME 33.4 SEC (22.5-37.2); PROTIME (NOT ORD) 14.4 SEC (12.0-14.5)
[2016-11-09 12:14] LABS: A/G RATIO 0.7 (0.7-1.9); ALBUMIN 2.9 G/DL (3.5-5.0); ALKALINE PHOSPHATASE 327 U/L (45-117); BUN (BLOOD UREA NITROGEN) 14 MG/DL (6-23); CHLORIDE, SERUM 109 MMOL/L (96-112); CO2 (CARBON DIOXIDE) 22 MMOL/L (24-34); CREATININE 0.68 MG/DL (0.70-1.30); GFR AFRICAN AMERICAN 115 ML/MIN (>=60); GFR NON AFRICAN AMERICAN 99 ML/MIN (>=60); GLOBULIN 4.4 G/DL (2.5-4.1); GLUCOSE, SERUM 98 MG/DL (60-99); SGOT(AST) 91 U/L (5-40); SGPT(ALT) 119 U/L (5-65); SODIUM, SERUM 139 MMOL/L (135-148); TOTAL BILIRUBIN 2.4 MG/DL (0-1.2); TOTAL PROTEIN 7.3 G/DL (6.0-8.5)
[2016-11-09 13:03] LABS: BAND NEUTROPHILS 2 %; EOSINOPHILS 3 %; EOSINOPHILS ABSOLUTE (CALC) 0.41 10/3/uL (0.0-0.53); IMMATURE GRANS ABSOLUTE (CALC) 0.54 10/3/uL (0.0-0.11); LYMPHOCYTES 15 %; LYMPHOCYTES ABSOLUTE (CALC) 2.04 10/3/uL (0.67-4.30); MONOCYTES 4 %; MONOCYTES ABSOLUTE (CALC) 0.54 10/3/uL (0.21-1.20); NEUTROPHILS ABSOLUTE (CALC) 10.06 10/3/uL (2.02-8.40); SEGMENTED NEUTROPHIL (0) 72 %; TOTAL NUCLEATED CELLS 100
[2016-11-09 13:04] LABS: METAMYELOCYTES 4 %; PLATELET ESTIMATE INC (ADEQUATE); RBC MORPHOLOGY NORM (NORMAL)
[2016-11-10 06:10] LABS: HEMATOCRIT 42.8 % (40.0-51.0); HEMOGLOBIN 14.2 g/dL (13.6-17.8); MEAN CORPUS HGB CONC 33.2 g/dL (32.0-36.0); MEAN CORPUSCULAR HEMOGLOB 29.7 pg (26.0-34.0); MEAN CORPUSCULAR VOLUME 89.5 fL (80-100); MEAN PLATELET VOLUME 9.4 fL (9.2-13.0); PLATELET COUNT 463 10/3/uL (150-400); RBC DISTRIBUTION WIDTH 14.8 % (12.0-16.0); RED CELL COUNT 4.78 10/6/uL (4.7-6.1); WHITE BLOOD CELLS 10.8 10/3/uL (4.5-10.5)
[2016-11-10 06:14] LABS: MANUAL DIFF YES %
[2016-11-10 06:27] LABS: ALBUMIN 2.6 G/DL (3.5-5.0); CALCIUM, SERUM 8.9 MG/DL (8.5-10.4); CHLORIDE, SERUM 110 MMOL/L (96-112); CO2 (CARBON DIOXIDE) 24 MMOL/L (24-34); CREATININE 0.71 MG/DL (0.70-1.30); DIRECT BILIRUBIN 0.2 MG/DL (0.0-0.4); GFR AFRICAN AMERICAN 113 ML/MIN (>=60); GFR NON AFRICAN AMERICAN 97 ML/MIN (>=60); GLUCOSE, SERUM 108 MG/DL (60-99); POTASSIUM, SERUM 4.6 MMOL/L (3.5-5.3); SGOT(AST) 93 U/L (5-40); SGPT(ALT) 131 U/L (5-65); SODIUM, SERUM 141 MMOL/L (135-148); TOTAL PROTEIN 6.9 G/DL (6.0-8.5)
[2016-11-10 06:29] LABS: ALKALINE PHOSPHATASE 298 U/L (45-117); BUN (BLOOD UREA NITROGEN) 18 MG/DL (6-23); INDIRECT BILIRUBIN(NOT ORDER) 0.6 MG/DL (0.1-0.9); TOTAL BILIRUBIN 0.8 MG/DL (0-1.2)
[2016-11-10 06:37] LABS: EOSINOPHILS 3 %; EOSINOPHILS ABSOLUTE (CALC) 0.32 10/3/uL (0.0-0.53); IMMATURE GRANS ABSOLUTE (CALC) 0.65 10/3/uL (0.0-0.11); LYMPHOCYTES 10 %; LYMPHOCYTES ABSOLUTE (CALC) 1.08 10/3/uL (0.67-4.30); METAMYELOCYTES 6 %; MONOCYTES 8 %; MONOCYTES ABSOLUTE (CALC) 0.86 10/3/uL (0.21-1.20); NEUTROPHILS ABSOLUTE (CALC) 7.88 10/3/uL (2.02-8.40); PLATELET ESTIMATE SLT INC (ADEQUATE); RBC MORPHOLOGY NORM (NORMAL); SEGMENTED NEUTROPHIL (0) 73 %; TOTAL NUCLEATED CELLS 100
[2016-11-10 06:38] LABS: TOXIC GRANULATION SLT
[2016-11-11 04:40] LABS: HEMATOCRIT 40.3 % (40.0-51.0); HEMOGLOBIN 13.7 g/dL (13.6-17.8); MEAN CORPUSCULAR HEMOGLOB 30.7 pg (26.0-34.0); MEAN CORPUSCULAR VOLUME 90.4 fL (80-100); MEAN PLATELET VOLUME 9.5 fL (9.2-13.0); PLATELET COUNT 404 10/3/uL (150-400); RBC DISTRIBUTION WIDTH 15.2 % (12.0-16.0); RED CELL COUNT 4.46 10/6/uL (4.7-6.1); WHITE BLOOD CELLS 10.8 10/3/uL (4.5-10.5)
[2016-11-11 04:50] LABS: BUN (BLOOD UREA NITROGEN) 18 MG/DL (6-23); CALCIUM, SERUM 8.8 MG/DL (8.5-10.4); CHLORIDE, SERUM 110 MMOL/L (96-112); CO2 (CARBON DIOXIDE) 19 MMOL/L (24-34); CREATININE 0.65 MG/DL (0.70-1.30); GFR AFRICAN AMERICAN 117 ML/MIN (>=60); GFR NON AFRICAN AMERICAN 101 ML/MIN (>=60); GLUCOSE, SERUM 101 MG/DL (60-99); POTASSIUM, SERUM 4.7 MMOL/L (3.5-5.3); SODIUM, SERUM 137 MMOL/L (135-148)
[2016-11-11 04:52] LABS: MANUAL DIFF YES %
[2016-11-11 05:29] LABS: BAND NEUTROPHILS 5 %; EOSINOPHILS 1 %; EOSINOPHILS ABSOLUTE (CALC) 0.11 10/3/uL (0.0-0.53); IMMATURE GRANS ABSOLUTE (CALC) 0.43 10/3/uL (0.0-0.11); LYMPHOCYTES 20 %; LYMPHOCYTES ABSOLUTE (CALC) 2.16 10/3/uL (0.67-4.30); METAMYELOCYTES 4 %; MONOCYTES 2 %; MONOCYTES ABSOLUTE (CALC) 0.22 10/3/uL (0.21-1.20); NEUTROPHILS ABSOLUTE (CALC) 7.88 10/3/uL (2.02-8.40); PLATELET ESTIMATE ADQ (ADEQUATE); RBC MORPHOLOGY NORM (NORMAL); SEGMENTED NEUTROPHIL (0) 68 %; TOTAL NUCLEATED CELLS 100
[2016-11-13 06:05] LABS: HEMATOCRIT 39.8 % (40.0-51.0); HEMOGLOBIN 13.2 g/dL (13.6-17.8); MANUAL DIFF YES %; MEAN CORPUS HGB CONC 33.2 g/dL (32.0-36.0); MEAN CORPUSCULAR HEMOGLOB 29.9 pg (26.0-34.0); MEAN CORPUSCULAR VOLUME 90.2 fL (80-100); PLATELET COUNT 605 10/3/uL (150-400); RBC DISTRIBUTION WIDTH 14.8 % (12.0-16.0); RED CELL COUNT 4.41 10/6/uL (4.7-6.1); WHITE BLOOD CELLS 8.8 10/3/uL (4.5-10.5)
[2016-11-13 06:22] LABS: BUN (BLOOD UREA NITROGEN) 17 MG/DL (6-23); CHLORIDE, SERUM 108 MMOL/L (96-112); GFR AFRICAN AMERICAN 113 ML/MIN (>=60); GFR NON AFRICAN AMERICAN 98 ML/MIN (>=60); GLUCOSE, SERUM 116 MG/DL (60-99); POTASSIUM, SERUM 4.3 MMOL/L (3.5-5.3); SODIUM, SERUM 140 MMOL/L (135-148)
[2016-11-13 06:26] LABS: BASOPHILS 1 %; BASOPHILS ABSOLUTE (CALC) 0.09 10/3/uL (0.0-0.16); CALCIUM, SERUM 8.9 MG/DL (8.5-10.4); CO2 (CARBON DIOXIDE) 25 MMOL/L (24-34); EOSINOPHILS 5 %; EOSINOPHILS ABSOLUTE (CALC) 0.44 10/3/uL (0.0-0.53); IMMATURE GRANS ABSOLUTE (CALC) 0.26 10/3/uL (0.0-0.11); LYMPHOCYTES 21 %; LYMPHOCYTES ABSOLUTE (CALC) 1.85 10/3/uL (0.67-4.30); METAMYELOCYTES 3 %; MONOCYTES 9 %; MONOCYTES ABSOLUTE (CALC) 0.79 10/3/uL (0.21-1.20); NEUTROPHILS ABSOLUTE (CALC) 5.37 10/3/uL (2.02-8.40); PLATELET ESTIMATE INC (ADEQUATE); RBC MORPHOLOGY NORM (NORMAL); SEGMENTED NEUTROPHIL (0) 61 %; TOTAL NUCLEATED CELLS 100
[2016-11-13 11:19] LABS: ALBUMIN 3.1 G/DL (3.5-5.0); DIRECT BILIRUBIN 0.2 MG/DL (0.0-0.4); INDIRECT BILIRUBIN(NOT ORDER) 0.5 MG/DL (0.1-0.9); TOTAL BILIRUBIN 0.7 MG/DL (0-1.2); TOTAL PROTEIN 7.7 G/DL (6.0-8.5)
[2016-11-13 11:39] LABS: HEPATITIS B SURFACE ANTIGEN NON-REACTIVE (NON-REACT)
[2016-11-13 12:06] LABS: HEPATITIS B CORE AB IGM NON-REACTIVE (NON-REAC); HEPATITIS C ANTIBODY NON-REACTIVE (NON-REACT)
[2016-11-13 12:08] LABS: HEP A ANTIBODY IGM NON-REACTIVE (NON-REACT)
[2016-11-13] MEDS ORDERED: ASAB PO (18:08)
[2016-11-14 11:23] LABS: BASOPHILS 0.4 %; BASOPHILS ABSOLUTE 0.07 10/3/uL (0.0-0.16); EOSINOPHILS ABSOLUTE 0.16 10/3/uL (0.0-0.53); HEMATOCRIT 43.6 % (40.0-51.0); HEMOGLOBIN 14.5 g/dL (13.6-17.8); IMMATURE GRANULOCYTES ABSOLUTE 0.16 10/3/uL (0.0-0.11); MANUAL DIFF NO %; MEAN CORPUS HGB CONC 33.3 g/dL (32.0-36.0); MEAN CORPUSCULAR HEMOGLOB 30.3 pg (26.0-34.0); MEAN PLATELET VOLUME 8.9 fL (9.2-13.0); MONOCYTES 6.1 %; MONOCYTES ABSOLUTE 0.98 10/3/uL (0.21-1.20); NEUTROPHILS 81.5 %; NEUTROPHILS ABSOLUTE 12.98 10/3/uL (2.02-8.40); PLATELET COUNT 677 10/3/uL (150-400); RED CELL COUNT 4.79 10/6/uL (4.7-6.1)
[2016-11-14 11:28] LABS: C-REACTIVE PROTEIN 10.3 MG/L (<8.0)
[2016-11-14 11:59] LABS: PROCALCITONIN 0.07 ng/mL (<0.5)
[2016-11-14] MEDS ORDERED: AZACT2 IV (12:18)
[2016-11-14] MEDS ORDERED: ZOFRAN ODT4 MG PO (12:20)
[2016-11-14] MEDS ORDERED: FLORASTOR250 MG PO (12:20)
[2016-11-14] MEDS ORDERED: DIL2TAB PO (12:21)
[2016-11-15 06:19] LABS: BASOPHILS 0.5 %; BASOPHILS ABSOLUTE 0.05 10/3/uL (0.0-0.16); EOSINOPHILS 3.4 %; EOSINOPHILS ABSOLUTE 0.34 10/3/uL (0.0-0.53); HEMATOCRIT 39.4 % (40.0-51.0); HEMOGLOBIN 13.1 g/dL (13.6-17.8); IMMATURE GRANULOCYTES 0.6 %; IMMATURE GRANULOCYTES ABSOLUTE 0.06 10/3/uL (0.0-0.11); LYMPHOCYTES 11.8 %; LYMPHOCYTES ABSOLUTE 1.18 10/3/uL (0.67-4.30); MEAN CORPUS HGB CONC 33.2 g/dL (32.0-36.0); MEAN CORPUSCULAR HEMOGLOB 29.8 pg (26.0-34.0); MEAN CORPUSCULAR VOLUME 89.7 fL (80-100); MEAN PLATELET VOLUME 8.6 fL (9.2-13.0); MONOCYTES 6.3 %; MONOCYTES ABSOLUTE 0.63 10/3/uL (0.21-1.20); NEUTROPHILS 77.4 %; NEUTROPHILS ABSOLUTE 7.74 10/3/uL (2.02-8.40); PLATELET COUNT 656 10/3/uL (150-400); RBC DISTRIBUTION WIDTH 14.9 % (12.0-16.0); RED CELL COUNT 4.39 10/6/uL (4.7-6.1)
[2016-11-15 06:20] LABS: MANUAL DIFF NO %
[2016-11-15 06:36] LABS: BUN (BLOOD UREA NITROGEN) 15 MG/DL (6-23); CALCIUM, SERUM 9.3 MG/DL (8.5-10.4); CHLORIDE, SERUM 108 MMOL/L (96-112); CO2 (CARBON DIOXIDE) 27 MMOL/L (24-34); CREATININE 0.84 MG/DL (0.70-1.30); GFR AFRICAN AMERICAN 105 ML/MIN (>=60); GFR NON AFRICAN AMERICAN 91 ML/MIN (>=60); GLUCOSE, SERUM 114 MG/DL (60-99); POTASSIUM, SERUM 4.3 MMOL/L (3.5-5.3); SODIUM, SERUM 142 MMOL/L (135-148)
[2016-11-16 07:12] LABS: BASOPHILS ABSOLUTE 0.09 10/3/uL (0.0-0.16); EOSINOPHILS 3.8 %; EOSINOPHILS ABSOLUTE 0.35 10/3/uL (0.0-0.53); HEMOGLOBIN 13.7 g/dL (13.6-17.8); IMMATURE GRANULOCYTES 0.8 %; IMMATURE GRANULOCYTES ABSOLUTE 0.07 10/3/uL (0.0-0.11); LYMPHOCYTES 15.9 %; LYMPHOCYTES ABSOLUTE 1.47 10/3/uL (0.67-4.30); MEAN CORPUS HGB CONC 33.4 g/dL (32.0-36.0); MEAN CORPUSCULAR HEMOGLOB 29.8 pg (26.0-34.0); MEAN CORPUSCULAR VOLUME 89.1 fL (80-100); MEAN PLATELET VOLUME 8.3 fL (9.2-13.0); MONOCYTES 5.4 %; NEUTROPHILS 73.1 %; NEUTROPHILS ABSOLUTE 6.79 10/3/uL (2.02-8.40); PLATELET COUNT 733 10/3/uL (150-400); RBC DISTRIBUTION WIDTH 14.9 % (12.0-16.0); WHITE BLOOD CELLS 9.3 10/3/uL (4.5-10.5)
[2016-11-16 07:15] LABS: MANUAL DIFF NO %
[2016-11-16 07:25] LABS: A/G RATIO 0.7 (0.7-1.9); ALBUMIN 2.9 G/DL (3.5-5.0); ALKALINE PHOSPHATASE 189 U/L (45-117); BUN (BLOOD UREA NITROGEN) 11 MG/DL (6-23); CALCIUM, SERUM 9.3 MG/DL (8.5-10.4); CHLORIDE, SERUM 110 MMOL/L (96-112); CO2 (CARBON DIOXIDE) 24 MMOL/L (24-34); CREATININE 0.65 MG/DL (0.70-1.30); GFR AFRICAN AMERICAN 117 ML/MIN (>=60); GFR NON AFRICAN AMERICAN 101 ML/MIN (>=60); GLOBULIN 4.3 G/DL (2.5-4.1); GLUCOSE, SERUM 97 MG/DL (60-99); SGOT(AST) 24 U/L (5-40); SGPT(ALT) 62 U/L (5-65); SODIUM, SERUM 141 MMOL/L (135-148); TOTAL BILIRUBIN 0.9 MG/DL (0-1.2); TOTAL PROTEIN 7.2 G/DL (6.0-8.5)
[2016-11-16 08:37] LABS: PROCALCITONIN <0.05 ng/mL (<0.5)
[2016-11-16 14:00] LABS: T PROTEIN (ELECT)(NOT OR 6.9 G/DL (6.0-8.5)
[2016-11-17 07:46] LABS: BASOPHILS 1.2 %; BASOPHILS ABSOLUTE 0.09 10/3/uL (0.0-0.16); EOSINOPHILS 5.9 %; EOSINOPHILS ABSOLUTE 0.44 10/3/uL (0.0-0.53); HEMATOCRIT 38.2 % (40.0-51.0); HEMOGLOBIN 12.8 g/dL (13.6-17.8); IMMATURE GRANULOCYTES 0.4 %; IMMATURE GRANULOCYTES ABSOLUTE 0.03 10/3/uL (0.0-0.11); LYMPHOCYTES 14.7 %; LYMPHOCYTES ABSOLUTE 1.09 10/3/uL (0.67-4.30); MANUAL DIFF NO %; MEAN CORPUS HGB CONC 33.5 g/dL (32.0-36.0); MEAN CORPUSCULAR HEMOGLOB 29.8 pg (26.0-34.0); MEAN CORPUSCULAR VOLUME 88.8 fL (80-100); MEAN PLATELET VOLUME 8.3 fL (9.2-13.0); MONOCYTES 8.1 %; NEUTROPHILS 69.7 %; NEUTROPHILS ABSOLUTE 5.18 10/3/uL (2.02-8.40); PLATELET COUNT 630 10/3/uL (150-400); RBC DISTRIBUTION WIDTH 14.9 % (12.0-16.0); WHITE BLOOD CELLS 7.4 10/3/uL (4.5-10.5)
[2016-11-17 07:57] LABS: BUN (BLOOD UREA NITROGEN) 10 MG/DL (6-23); CALCIUM, SERUM 8.9 MG/DL (8.5-10.4); CHLORIDE, SERUM 111 MMOL/L (96-112); CO2 (CARBON DIOXIDE) 26 MMOL/L (24-34); CREATININE 0.67 MG/DL (0.70-1.30); GFR AFRICAN AMERICAN 115 ML/MIN (>=60); GFR NON AFRICAN AMERICAN 99 ML/MIN (>=60); GLUCOSE, SERUM 95 MG/DL (60-99); POTASSIUM, SERUM 4.3 MMOL/L (3.5-5.3); SODIUM, SERUM 144 MMOL/L (135-148)
[2016-11-18 05:50] LABS: CALCIUM, SERUM 8.4 MG/DL (8.5-10.4); CHLORIDE, SERUM 111 MMOL/L (96-112); CO2 (CARBON DIOXIDE) 27 MMOL/L (24-34); CREATININE 0.77 MG/DL (0.70-1.30); GFR AFRICAN AMERICAN 109 ML/MIN (>=60); GFR NON AFRICAN AMERICAN 94 ML/MIN (>=60); GLUCOSE, SERUM 103 MG/DL (60-99); POTASSIUM, SERUM 4.5 MMOL/L (3.5-5.3); SODIUM, SERUM 144 MMOL/L (135-148)
[2016-11-18 05:53] LABS: BUN (BLOOD UREA NITROGEN) 14 MG/DL (6-23)
[2016-11-18 05:59] LABS: BASOPHILS 1.5 %; BASOPHILS ABSOLUTE 0.11 10/3/uL (0.0-0.16); EOSINOPHILS 7.2 %; EOSINOPHILS ABSOLUTE 0.53 10/3/uL (0.0-0.53); HEMATOCRIT 36.8 % (40.0-51.0); IMMATURE GRANULOCYTES 0.7 %; IMMATURE GRANULOCYTES ABSOLUTE 0.05 10/3/uL (0.0-0.11); LYMPHOCYTES 19.9 %; LYMPHOCYTES ABSOLUTE 1.46 10/3/uL (0.67-4.30); MEAN CORPUS HGB CONC 32.6 g/dL (32.0-36.0); MEAN CORPUSCULAR HEMOGLOB 29.6 pg (26.0-34.0); MEAN CORPUSCULAR VOLUME 90.6 fL (80-100); MEAN PLATELET VOLUME 8.5 fL (9.2-13.0); MONOCYTES 5.6 %; MONOCYTES ABSOLUTE 0.41 10/3/uL (0.21-1.20); NEUTROPHILS 65.1 %; NEUTROPHILS ABSOLUTE 4.79 10/3/uL (2.02-8.40); PLATELET COUNT 670 10/3/uL (150-400); RBC DISTRIBUTION WIDTH 14.9 % (12.0-16.0); RED CELL COUNT 4.06 10/6/uL (4.7-6.1); WHITE BLOOD CELLS 7.4 10/3/uL (4.5-10.5)
[2016-11-18 06:02] LABS: MANUAL DIFF NO %
[2016-11-19 14:38] LABS: A/G 1.06 RATIO (0.9-2.10); ALB RELATIVE % 51.5 % (60.0-89.0); ALBUMIN (ELECTRO) 3.55 GM/DL (3.2-5.5); ALPHA 1 (ELECTRO) 0.23 GM/DL (0.1-0.4); ALPHA 1 RELAT % (NOT ORD) 3.4 % (1.0-4.0); ALPHA 2 RELAT % 17.4 % (4.5-26.0); BETA GLOBULIN (SPE) 0.83 GM/DL (0.60-1.30); GAMMA GLOBULIN (SPE) 1.08 G/DL (0.70-1.60); GAMMA RELAT % 15.7 % (6.0-22.0)
[2017-03-12] MEDS ORDERED: *DENIES (13:21)
== END 2016-11-19 19:11 | disposition home health service (06) | DRG 699 ==
LOC: ER 01:26 → 6NO 04:27
PROVIDERS: Emergency Medicine; Hospitalist; Internal Medicine
PROC: 02HV33Z Insertion of Infusion Device into Superior Vena Cava, Percutaneous Approach (ICD-10-PCS; principal; 2016-11-13)
PROC: 4A02X4A Measurement of Cardiac Electrical Activity, Guidance, External Approach (ICD-10-PCS; 2016-11-13)
DX: T83.511A Infection and inflammatory reaction due to indwelling urethral catheter, initial encounter (principal); A04.7 Enterocolitis due to Clostridium difficile; I95.89 Other hypotension; B17.9 Acute viral hepatitis, unspecified; B96.5 Pseudomonas (aeruginosa) (mallei) (pseudomallei) as the cause of diseases classified elsewhere; N39.0 Urinary tract infection, site not specified; N45.1 Epididymitis; B96.1 Klebsiella pneumoniae [K. pneumoniae] as the cause of diseases classified elsewhere; N40.1 Benign prostatic hyperplasia with lower urinary tract symptoms; R33.8 Other retention of urine; D47.3 Essential (hemorrhagic) thrombocythemia; R51 Headache; R00.1 Bradycardia, unspecified; N43.2 Other hydrocele; K80.20 Calculus of gallbladder without cholecystitis without obstruction; Z86.718 Personal history of other venous thrombosis and embolism; Z88.0 Allergy status to penicillin; Z88.2 Allergy status to sulfonamides; Z88.1 Allergy status to other antibiotic agents; Z88.8 Allergy status to other drugs, medicaments and biological substances
CPT/HCPCS: 36569; 70450; 71010; 74177; 76700; 76870; 80048; 80053; 80074; 80076; 81001; 82550; 82728; 83540; 83550; 83605; 83735; 84145; 84155; 84165; 84443; 84484; 85025; 85610; 85730; 86140; 87040; 87045; 87046; 87046-59; 87086; 87493; 87493-59; 87899; 87899-59; 89055; 93005; 93306; 96374; 96375; 99285; A9270-GY; C1751; J1170; J2405; Q9967